=== PATIENT | male | born 1960 ===

== ENCOUNTER 2017-08-16 17:49 | Emergency (ER) | payer SELFPAY ==
[2017-08-16 17:53] VITALS: BP 140/97; PULSE 88; RESP 16; TEMP 98; O2SAT 100
[2017-08-16] MEDS ORDERED: Tdap Vaccine 0.5 ml Vial (10-64 yrs) IM ONE (18:19)
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
[2017-08-16] MEDS ORDERED: Lidocaine 1% (10 ml) Inj INJ STA (20:35)
[2017-08-16] MEDS ORDERED: Lidocaine 1% Inj (20ml) ONE (20:40)
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
--- NOTE | 2017-08-17 14:12 | RAD ---
PROCEDURE: Radiographs of the right elbow. HISTORY: pain COMPARISON: No prior. FINDINGS: BONES: No fracture. Spurring of the olecranon and coronoid process noted JOINTS: Mild arthrosis SOFT TISSUES: Normal. JOINT EFFUSION: None. OTHER FINDINGS: None. IMPRESSION: Senescent changes
== END 2017-08-16 21:38 | disposition home or self-care (01) ==
LOC: H.ER 17:49
DX: S01.81XA Laceration without foreign body of other part of head, initial encounter (principal); M79.641 Pain in right hand; M25.529 Pain in unspecified elbow; Y04.2XXA Assault by strike against or bumped into by another person, initial encounter
CPT/HCPCS: 12011; 70480; 73080; 73130; 90471; 90715; 96372; 99282; J1885